=== PATIENT | female | born 1965 | race Caucasian/White ===

== ENCOUNTER 2016-08-05 10:25 | Emergency (ER) | payer OTHER ==
[2016-08-05 10:39] VITALS: BP 105/52; PULSE 60; TEMP 98.1; BMI 34.3
[2016-08-05] MEDS ORDERED: DEXAMETHASONE 4 MG TABLET (FP) PO ONE (10:40)
[2016-08-05] MEDS ORDERED: DEXAMETHASONE SOD PHOSPHATE 10 MG/1 ML VIAL ONE (10:40)
--- NOTE | 2016-08-05 10:40 | PDOC ---
History of Present Illness - General Chief Complaint: Rash Stated Complaint: ITCHING, RASH Time Seen by Provider: 08/05/16 10:31 History Source: Patient, Spouse Exam Limitations: No Limitations - History of Present Illness Initial Comments: 08/05/16 10:38 The patient is a 51-year-old female, with no significant past medical history, who presents to the emergency department with an itchy rash on her trunk, that began yesterday. She has been taking clindamycin for the past 7 days, following the extraction of a wisdom tooth. She was taking a 7 day course of the medication. She denies lip, tongue, throat swelling. She denies dyspnea, wheezing, cough. She denies abdominal pain. She denies dizziness, lightheadedness. She denies fever. She has never taken clindamycin in the past. Past History - Past Medical History Allergies/Adverse Reactions: Allergies Allergy/AdvReac Type Severity Reaction Status Date / Time amoxicillin Allergy Verified 10/27/15 19:19 amoxicillin trihydrate Allergy Verified 08/05/16 10:28 [From Augmentin] potassium clavulanate Allergy Verified 08/05/16 10:28 [From Augmentin] Home Medications: Ambulatory Orders Famotidine [Pepcid] 20 mg PO BID #10 tablet 08/05/16 Loratadine [Claritin -] 10 mg PO DAILY #5 tablet 08/05/16 Omeprazole 20 mg PO DAILY 08/05/16 Ranitidine [Zantac -] 150 mg PO DAILY 08/05/16 Asthma: Yes Cardiac Disorders: Yes (ARRYTHMIA, HEART MURMUR) GI Disorders: Yes (ACID REFLUX) Suicide Attempt (Hx): No - Psycho/Social/Smoking Cessation Hx Anxiety: No Suicidal Ideation: No Smoking Status: No Smoking History: Never smoked Have you smoked in the past 12 months: No Number of Cigarettes Smoked Daily: 0 Information on smoking cessation initiated: No Hx Alcohol Use: No Drug/Substance Use Hx: No Substance Use Type: None Review of Systems - Review of Systems Comments:: 08/05/16 10:38 CONSTITUTIONAL: Absent: fever, chills, fatigue EYES: Absent: visual changes ENT: Absent: ear pain, sore throat CARDIOVASCULAR: Absent: chest pain, palpitations, loss of consciousness RESPIRATORY: Absent: cough, SOB GI: Absent: abdominal pain, nausea, vomiting, constipation, diarrhea GENITOURINARY: Absent: dysuria, frequency, hematuria MUSKULOSKELETAL: Absent: back pain, arthralgia, myalgia SKIN: Present: See history of present illness NEURO: Absent: headache, dizziness *Physical Exam - Vital Signs Last Vital Signs Temp Pulse Resp BP Pulse Ox 98.1 F 60 18 105/52 96 08/05/16 10:25 08/05/16 10:25 08/05/16 10:25 08/05/16 10:25 08/05/16 10:25 - Physical Exam Comments: 08/05/16 10:39 GENERAL: Well-appearing, well-nourished. No apparent distress. HEENT: Normocephalic, atraumatic. PERRL, EOM intact. CARDIOVASCULAR: Normal S1, S2. Regular rate and rhythm. PULMONARY: Clear to auscultation bilaterally. ABDOMEN: Soft, non-distended, non-tender. EXTREMITIES: Normal ROM in all four extremities. No gross deformities. SKIN: There is an erythematous, maculopapular rash on her trunk. There are no vesicles. Warm, dry. NEUROLOGICAL: No focal neurological deficits. Medical Decision Making - Medical Decision Making 08/05/16 10:39 The patient is well-appearing and in no acute distress There is no evidence of anaphylaxis Will administer a single dose of Decadron here Will discharge on oral Pepcid, oral Claritin, and when necessary oral Benadryl Clinical impression: Drug rash I discussed the physical exam findings, ancillary test results and final diagnoses with the patient. I answered all of the patient's questions. The patient was satisfied with the care received and felt comfortable with the discharge plan and treatment plan. The patient will call their primary care physician within 24 hours to arrange follow-up and will return to the Emergency Department with any new, persistent or worsening symptoms. *DC/Admit/Observation/Transfer Diagnosis at time of Disposition: Allergic reaction to drug, Urticaria - Discharge Dispostion Disposition: HOME Condition at time of disposition: Stable - Prescriptions Prescriptions: Loratadine [Claritin -] 10 mg PO DAILY #5 tablet Famotidine [Pepcid] 20 mg PO BID #10 tablet - Referrals Referrals: Summer Espinoza MD [Primary Care Provider] - - Patient Instructions Printed Discharge Instructions: DI for Adverse Drug Reaction -- Allergic Additional Instructions: You are ALLERGIC to clindamycin. You should never take this medication again, or any related medications. Return to the emergency department immediately with ANY new, persistent or worsening symptoms. You MUST call and follow up with your doctor tomorrow. Please make sure your doctor reviews the results of your emergency department evaluation. - Post Discharge Activity Work/School Note: Back to Work
[2016-08-05] MEDS ORDERED: DEXAMETHASONE 4 MG TABLET (FP) ONE (10:42)
== END 2016-08-05 11:00 | disposition home or self-care (01) ==
LOC: FER 10:25
DX: L50.9 Urticaria, unspecified (principal); T50.905A Adverse effect of unspecified drugs, medicaments and biological substances, initial encounter; Y92.9 Unspecified place or not applicable; J45.909 Unspecified asthma, uncomplicated; K21.9 Gastro-esophageal reflux disease without esophagitis; R01.1 Cardiac murmur, unspecified
CPT/HCPCS: 99283-25

== ENCOUNTER 2016-09-21 12:20 | Emergency (ER) | payer OTHER ==
[2016-09-21 12:43] VITALS: BP 122/45; PULSE 81; TEMP 98.9; BMI 34.3
--- NOTE | 2016-09-21 12:46 | PDOC ---
History of Present Illness - General Chief Complaint: Cold Symptoms Stated Complaint: COUGH, BODY ACHES, SORE THROAT Time Seen by Provider: 09/21/16 12:26 History Source: Patient Exam Limitations: No Limitations - History of Present Illness Initial Comments: 09/21/16 12:46 This is a 51-year-old female with a prior history of mild intermittent asthma ( no prior intubations, last asthma exacerbation approximately one year ago, last use of prednisone approximately one year ago) who presents to the emergency department with a complaint of cough and shortness of breath. She denies fevers or chills. She has chest pain when she coughs. Cough is nonproductive. No recent travel. No ill contacts. On account of her coughing, patient has had chest discomfort, but this is present only with coughing. She is unable to delineate to me known triggers She does state that when she gets symptoms like this, they tend to last for several months she thinks she may have seen a table runner in the past PMH: asthma PSH: denies meds: denies ALL: Augmentin, clindamycin social: denies tobacco us 09/21/16 12:48 09/21/16 12:57 09/21/16 13:07 GENERAL/CONSTITUTIONAL: No: fever, chills, weakness, loss of appetite. HEAD, EYES, EARS, NOSE AND THROAT: Yes: sore throat No: change in vision, ear pain, discharge CARDIOVASCULAR: Yes: chest pain with coughing No: lightheadedness, palpitations , syncope RESPIRATORY: Yes: cough, shortness of breath, wheezing GASTROINTESTINAL: No: nausea, vomiting, diarrhea, abdominal pain MUSCULOSKELETAL: No: back pain, neck pain, joint pain, muscle swelling or pain SKIN: No: lesions, pallor, rash or easy bruising. NEUROLOGIC: No: headache, weakness GENERAL: The patient is in no acute distress, coughing. EYES: PERRLA, EOMI, sclera anicteric, conjunctiva clear. ENT: Pharynx mildly erythematous, no tonsillar enlargement, no exudates. Moist mucous membranes. NECK: Normal range of motion, supple without lymphadenopathy, JVD, or masses. LUNGS: Breath sounds equal, clear to auscultation bilaterally. HEART:Regular rate and rhythm, normal S1 and S2 without murmur, rub or gallop. ABDOMEN: Soft, nontender EXTREMITIES: Normal range of motion, no edema. No clubbing or cyanosis. No erythema, or tenderness. NEUROLOGICAL: Cranial nerves II through XII grossly intact. Normal speech. No focal neurological deficits. MUSCULOSKELETAL: Back non-tender to palpation, no CVA tenderness SKIN: Warm, Dry, normal turgor, no rashes or lesions noted. 09/23/16 10:09 Past History - Past Medical History Allergies/Adverse Reactions: Allergies Allergy/AdvReac Type Severity Reaction Status Date / Time clindamycin Allergy Unknown Verified 09/21/16 12:47 amoxicillin Allergy Verified 09/21/16 12:27 amoxicillin trihydrate Allergy Verified 09/21/16 12:27 [From Augmentin] potassium clavulanate Allergy Verified 09/21/16 12:27 [From Augmentin] Home Medications: Ambulatory Orders Albuterol 0.083% Nebulizer Charla [Ventolin 0.083% Nebulizer Soln -] 1 neb NEB Q6H PRN #30 vial 09/21/16 Azithromycin [Zithromax 250mg Tablets -] 250 mg PO UTDICT #6 tab 09/21/16 Brompheniramine/Pseudoephed/Dm [2Gct-[id number] Liquid] 473 ml PO Q6H PRN #1 liquid 09/21/16 Prednisone [Deltasone -] 60 mg PO DAILY #12 tablet 09/21/16 Asthma: Yes Cardiac Disorders: Yes (ARRYTHMIA, HEART MURMUR) GI Disorders: Yes (ACID REFLUX) Suicide Attempt (Hx): No - Psycho/Social/Smoking Cessation Hx Anxiety: No Suicidal Ideation: No Smoking Status: No Smoking History: Never smoked Have you smoked in the past 12 months: No Number of Cigarettes Smoked Daily: 0 Hx Alcohol Use: No Drug/Substance Use Hx: No Substance Use Type: None *Physical Exam - Vital Signs Last Vital Signs Temp Pulse Resp BP Pulse Ox 98.9 F 81 16 122/45 96 09/21/16 12:24 09/21/16 12:24 09/21/16 12:24 09/21/16 12:24 09/21/16 12:24 Medical Decision Making - Medical Decision Making 09/21/16 13:12 will do : rapid strep CXr will give prednisone will give neb will plan to discharge on prednisone burst, nebs, and antitussive Follow up with Dr Espinoza 09/21/16 13:44 X-ray demonstrates no consolidation,? Increased markings right middle lobe. Will discharge on anti-tussive, prednisone, albuterol. Patient asked to follow-up with her primary care physician. Will also asked patient to follow up with table runner (if recommended by PMD). Any other concerns or complaints. Please monitoring her temperature for fever *DC/Admit/Observation/Transfer Diagnosis at time of Disposition: Bronchitis - Discharge Dispostion Disposition: HOME Condition at time of disposition: Good Admit: No - Prescriptions Prescriptions: Brompheniramine/Pseudoephed/Dm [2Ibb-[id number] Liquid] 473 ml PO Q6H PRN #1 liquid PRN Reason: Cough Prednisone [Deltasone -] 60 mg PO DAILY #12 tablet Albuterol 0.083% Nebulizer Charla [Ventolin 0.083% Nebulizer Soln -] 1 neb NEB Q6H PRN #30 vial PRN Reason: Cough Azithromycin [Zithromax 250mg Tablets -] 250 mg PO UTDICT #6 tab - Referrals Referrals: Leo Hoffman [Primary Care Provider] - - Patient Instructions Printed Discharge Instructions: DI for Acute Bronchitis Additional Instructions: Reena Thank you for coming in to the ER today Please take medications as prescribed please follow up with your primary care physician at the next available appointment Please check your self for fevers, return to the ER for this Please return if you are short of breath, difficulty breathing, have any other concerns or complaint
[2016-09-21] MEDS ORDERED: ALBUTEROL SO4 0.083% IH SOL 2.5 MG/3 ML VIAL.NEB. NEB ONE ×2 (12:48→13:01)
[2016-09-21] MEDS ORDERED: predniSONE 20 MG TABLET (UD) PO ONE (12:57)
[2016-09-21] MEDS ORDERED: predniSONE 20 MG TABLET (UD) ONE (13:01)
== END 2016-09-21 14:11 | disposition home or self-care (01) ==
LOC: FER 12:20 → SUPCPDRO 12:20 → FER 14:11
PROC: 3E0F7GC Introduction of Other Therapeutic Substance into Respiratory Tract, Via Natural or Artificial Opening (ICD-10-PCS; principal; 2016-09-21)
DX: J40 Bronchitis, not specified as acute or chronic (principal); K21.9 Gastro-esophageal reflux disease without esophagitis; R01.1 Cardiac murmur, unspecified; I49.9 Cardiac arrhythmia, unspecified
CPT/HCPCS: 71020-TC; 87070; 87430; 99282-25

== ENCOUNTER 2017-06-08 09:35 | Emergency (ER) | payer OTHER ==
[2017-06-08 09:44] VITALS: BP 106/55; PULSE 84; TEMP 97.9; BMI 33.9
[2017-06-08] MEDS ORDERED: ACETAMINOPHEN 325 MG TABLET (FP) PO ONE (10:09)
--- NOTE | 2017-06-08 10:10 | PDOC ---
History of Present Illness - General Chief Complaint: Injury Stated Complaint: HEAD PAIN, DIZZY S/P SLIP AND FALL ON ICE Time Seen by Provider: 06/08/17 09:51 - History of Present Illness Initial Comments: 06/08/17 10:43 Chief complaint: Headache and dizziness History of present illness: Patient slipped on ice this morning, fell backward and struck her occiput. No loss of consciousness. This happened approximately 3 hours ago. She has had mild persistent headache and "lightheadedness" Review of systems: No visual or focal neurologic symptoms. No unsteadiness of gait. No other injuries including pain or injuries to the neck, chest, abdomen, pelvis, spine, or extremities. As noted above, there was no loss of consciousness, lightheadedness, dizziness, vertigo, or palpitations prior to the fall. Past medical history, social history, and family history were reviewed and noncontributory Physical exam: Alert and oriented, no acute distress, cooperative Afebrile, vital signs normal Head: No point tenderness, hematoma, contusion, depression, abrasion, or laceration noted. PERRLA, fundi benign with sharp disc margins and good central venous pulsations. ENT clear Neck without tenderness or deformity, full range of motion without pain Chest clear. No chest wall deformity or point tenderness. CV S1 and S2 normal without murmur rub or gallop pulses full and symmetric no JVD or edema Abdomen benign No spine or pelvic tenderness or deformity Neurological C2 to 12 intact. Strength full and symmetric. No focal sensory or motor deficits. Gait stable and unimpaired Extremities no CCE. No visible or palpable trauma. Full range of motion of the hips and shoulders, and other joints as well Impression: Head injury, possible minor concussion, rule out bleed Plan: CT and further management depending on results. Analgesics. Past History - Past Medical History Allergies/Adverse Reactions: Allergies Allergy/AdvReac Type Severity Reaction Status Date / Time clindamycin Allergy Unknown Verified 06/08/17 09:38 amoxicillin Allergy Verified 06/08/17 09:38 amoxicillin trihydrate Allergy Verified 06/08/17 09:38 [From Augmentin] potassium clavulanate Allergy Verified 06/08/17 09:38 [From Augmentin] Home Medications: Ambulatory Orders Albuterol 0.083% Nebulizer Charla [Ventolin 0.083% Nebulizer Soln -] 1 neb NEB Q6H PRN #30 vial 09/21/16 Asthma: Yes Cardiac Disorders: Yes (ARRYTHMIA, HEART MURMUR) COPD: No GI Disorders: Yes (ACID REFLUX) - Suicide/Smoking/Psychosocial Hx Smoking Status: No Smoking History: Never smoked Have you smoked in the past 12 months: No Number of Cigarettes Smoked Daily: 0 Information on smoking cessation initiated: No Hx Alcohol Use: No Drug/Substance Use Hx: No Substance Use Type: None *Physical Exam - Vital Signs Last Vital Signs Temp Pulse Resp BP Pulse Ox 97.9 F 84 18 106/55 100 06/08/17 09:35 06/08/17 09:35 06/08/17 09:35 06/08/17 09:35 06/08/17 09:35 Medical Decision Making - Medical Decision Making 06/08/17 10:53 CT negative Symptomatic treatment and follow-up as needed. Patient fully ambulatory and in no significant pain or other distress upon discharge to follow-up as recommended *DC/Admit/Observation/Transfer Diagnosis at time of Disposition: Contusion of scalp Qualifiers: Encounter type: initial encounter Qualified Code(s): S00.03XA - Contusion of scalp, initial encounter - Discharge Dispostion Disposition: HOME Condition at time of disposition: Stable Admit: No - Referrals Referrals: Summer Espinoza MD [Primary Care Provider] - 24 hours - Patient Instructions Printed Discharge Instructions: DI for Closed Head Injury - Post Discharge Activity Forms/Work/School Notes: Back to Work
[2017-06-08] MEDS ORDERED: ACETAMINOPHEN 325 MG TABLET (FP) ONE (10:19)
== END 2017-06-08 11:05 | disposition home or self-care (01) ==
LOC: FER 09:35
DX: S00.03XA Contusion of scalp, initial encounter (principal); W00.0XXA Fall on same level due to ice and snow, initial encounter; Y93.89 Activity, other specified; Y92.410 Unspecified street and highway as the place of occurrence of the external cause
CPT/HCPCS: 70450-TC; 99282-25

== ENCOUNTER 2018-04-23 09:34 | Emergency (ER) | payer OTHER ==
[2018-04-23 09:39] VITALS: TEMP 98; BMI 34.1
[2018-04-23 09:40] VITALS: BP 104/63; PULSE 63
--- NOTE | 2018-04-23 09:40 | PDOC ---
History of Present Illness - General Chief Complaint: Pain, Acute Stated Complaint: NECK PAIN History Source: Patient - History of Present Illness Initial Comments: 04/23/18 10:14 The patient is a 53 year old female with a PMH of fibromyalgia and asthma (no hospitalizations, no intubations, cannot recall when she last used her inhaler) presents c/o 1 week h/o L sided arm pain, 1 day h/o sinus/nasal pain. Sinus pain is frontal, pressure-like and patient notes some runny nose. No fevers/ chills, sore throat, cough. 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 Arm pain started yesterday evening and is "achy" constant, 10/10 and without any numbness/tingling. No associated chest pain. H/o similar pain in her LA arm w/ associated numbness/tingling earlier this year at which time her her PMD (Dr. Espinoza) referred her to rheumatology (Dr. Riggs). States she was prescribed a medication (cannot recall the name), however she did not feel it was working and so she stopped taking it. Patient thinks she had an MRI but is uncertain. Patient denies chest pain, shortness of breath, abdominal pain, nausea/vomiting , diarrhea/constipation, dysuria/hematuria as well as visual deficits, AMS. Allergy: Amoxicillin, Clindamycin PMD: Dr. Espinoza As per EMR, patient last evaluated in our ED in June 2017 for a fall after slipping on the ice. Head CT negative. Previous ED for visits for headache, abdominal pain associated w/menstruation, L arm numbness/tingling. H/o GI bleed. Past History - Past Medical History Allergies/Adverse Reactions: Allergies Allergy/AdvReac Type Severity Reaction Status Date / Time clindamycin Allergy Unknown Verified 04/23/18 09:35 amoxicillin Allergy Verified 04/23/18 09:35 amoxicillin trihydrate Allergy Verified 04/23/18 09:35 [From Augmentin] potassium clavulanate Allergy Verified 04/23/18 09:35 [From Augmentin] Home Medications: Ambulatory Orders Albuterol 0.083% Nebulizer Charla [Ventolin 0.083% Nebulizer Soln -] 1 neb NEB Q6H PRN #30 vial 09/21/16 Asthma: Yes Cardiac Disorders: Yes (ARRYTHMIA, HEART MURMUR) COPD: No GI Disorders: Yes (ACID REFLUX) - Suicide/Smoking/Psychosocial Hx Smoking Status: No Smoking History: Never smoked Have you smoked in the past 12 months: No Number of Cigarettes Smoked Daily: 0 Hx Alcohol Use: No Drug/Substance Use Hx: No Substance Use Type: None Review of Systems - Review of Systems Constitutional: No: Chills, Fever HEENTM: No: Blurred Vision, Double Vision Respiratory: No: Cough, Shortness of Breath, Wheezing Cardiac (ROS): No: Chest Pain, Lightheadedness, Palpitations, Syncope ABD/GI: Yes: Poor Fluid Intake. No: Constipated, Diarrhea, Nausea, Vomiting : No: Burning, Dysuria Neurological: No: Headache, Seizure, Weakness Psychiatric: No: Anxiety, Depression *Physical Exam - Vital Signs Last Vital Signs Temp Pulse Resp BP Pulse Ox 98 F 0/0 L 04/23/18 09:35 04/23/18 09:35 - Physical Exam General Appearance: Yes: Nourished, Obese HEENT: positive: Normal Voice, Sinus Tenderness, Hearing Grossly Normal Neck: positive: Trachea midline, Supple Respiratory/Chest: positive: Lungs Clear, Normal Breath Sounds. negative: Crackles, Rales, Stridor, Wheezing Cardiovascular: positive: Regular Rhythm, Regular Rate, S1, S2. negative: Edema , Murmur Vascular Pulses: Dorsalis-Pedis (R): 2+, Doralis-Pedis (L): 2+ Gastrointestinal/Abdominal: positive: Normal Bowel Sounds, Soft. negative: Distended, Guarding, Rebound, Tenderness Musculoskeletal: negative: CVA Tenderness (R), CVA Tenderness (L) Extremity: positive: Normal Capillary Refill, Normal Inspection, Other (2+ radial pulses B/L, full ROM of extremity, sensation, proproception intact) Integumentary: positive: Normal Color, Dry, Warm Neurologic: positive: Fully Oriented, Alert Moderate Sedation - Procedure Monitoring Vital Signs: Procedure Monitoring Vital Signs Temperature 98 F 04/23/18 09:35 Pulse Rate Respiratory Rate Blood Pressure 0/0 L 04/23/18 09:35 O2 Sat by Pulse Oximetry (%) ED Treatment Course - LABORATORY CBC & Chemistry Diagram: 04/23/18 10:15 04/23/18 10:15 Medical Decision Making - Medical Decision Making 04/23/18 11:14 53 year old female with unspecific L arm pain as well as sinus pain. VS unremarkable. B/L maxillary sinus tenderness. Frontal diagnosis: sinusitis, viral URI as well as radiculopathy, MSK pain (including possible fibromyalgia flare), less likely TN, low clinical suspicion for CVA. Will obtain EKG, Troponin x1, basic labs, CMP. Tylenol for pain as patient has h/o GI bleed. Reassess. 04/23/18 11:40 Troponin (-) x1, ECG non-ischemic as documented in ECG section of EMR CMP unremarkable Patient reassessed @ bedside, symptomatically improved. Resting comfortably. CBC pending. 04/23/18 12:43 CBS shows no leukocytosis. Hb stable As patient is symptomatically improved, will discharge home with PMD follow-up Clinical Impression: MSK pain +/- sinusitis. *DC/Admit/Observation/Transfer Diagnosis at time of Disposition: Musculoskeletal arm pain, Tenderness over maxillary sinus - Discharge Dispostion Disposition: HOME Condition at time of disposition: Good Decision to Admit order: No - Referrals Referrals: Summer Espinoza MD [Primary Care Provider] - - Patient Instructions Printed Discharge Instructions: DI for Sinusitis Additional Instructions: You were evaluated today for your arm and sinus/nasal pain. All of your labs and an EKG showed no concerning findings. At this time, you are safe for discharge home. You can use Afrin nasal spray (up to three day) alternating with a nasal spray. You may want to try a neti pot for symptomatic relief. You can take Tylenol (up to 4000 mg daily) for your pain. Please follow-up with Dr. Espinoza in the next 2-3 days. Return to the Emergency Department for any new/worsening/concerning symptoms including worsening of your pain, chest pain, shortness of breath. - Post Discharge Activity Forms/Work/School Notes: Back to Work
[2018-04-23] MEDS ORDERED: SODIUM CHLORIDE 0.9% 500 ML INFUS.BAG IV ONE (10:08)
[2018-04-23] MEDS ORDERED: ACETAMINOPHEN 1000 MG/100 ML VIAL (NON FORMULARY) IVPB ONE (10:12)
[2018-04-23] MEDS ORDERED: diazePAM CARPU-JECT 10 MG/2 ML DISP.SYRIN IVPUSH ONE (10:12)
[2018-04-23] MEDS ORDERED: ACETAMINOPHEN INJECTION 100 ML IVPB ONE (10:21)
[2018-04-23] MEDS ORDERED: diazePAM 5 MG TABLET ONE (10:21)
[2018-04-23] MEDS ORDERED: diazePAM 5 MG TABLET PO ONE (10:22)
[2018-04-23 10:28] LABS: BASO % 0.6 % (0-2.0); EOS % 2.4 % (0-4.5); HEMATOCRIT 37.3 % (32.4-45.2); HEMOGLOBIN 12.1 GM/dl (10.7-15.3); LYMPH % 35.4 % (8-40); MCH 24.2 pg (25.7-33.7); MCHC 32.4 g/dl (32.0-36.0); MEAN CELL VOLUME 74.5 fl (80-96); MEAN PLT VOLUME 8.3 fl (7.5-11.1); MONO % 6.4 % (3.8-10.2); NEUT % 55.2 % (42.8-82.8); PLATELET COUNT 249 K/MM3 (134-434); RDW 13.2 % (11.6-15.6)
[2018-04-23 10:38] LABS: ALBUMIN 3.8 g/dl (3.5-5.0); ALK PHOS 88 U/L (32-92); ANION GAP 8 MMOL/L (8-16); BILIRUBIN,TOTAL 0.7 mg/dl (0.2-1.0); BLOOD UREA NITROGEN 10 mg/dl (7-18); CALCIUM 8.4 mg/dl (8.4-10.2); CHLORIDE 103 mmol/L (98-107); CO2 25 mmol/L (22-28); CREATININE 0.7 mg/dl (0.6-1.3); GLUCOSE,RANDOM 110 mg/dl (74-106); POTASSIUM 3.7 mmol/L (3.5-5.1); SGOT/AST 32 U/L (10-42); SGPT/ALT 43 U/L (10-40); SODIUM 136 mmol/L (136-145); TOT PROT 6.6 g/dl (6.4-8.3)
--- NOTE | 2018-04-24 10:22 | EKG ---
Test Reason : Blood Pressure : / mmHG Vent. Rate : 057 BPM Atrial Rate : 057 BPM P-R Int : 226 ms QRS Dur : 070 ms QT Int : 454 ms P-R-T Axes : 051 002 006 degrees QTc Int : 441 ms SINUS BRADYCARDIA WITH 1ST DEGREE A-V BLOCK OTHERWISE NORMAL ECG WHEN COMPARED WITH ECG OF 22-MAR-2004 01:46, NO SIGNIFICANT CHANGE WAS FOUND Confirmed by INGRIS REILLY, BOZENA ([id number]) on 04/24/2018 10:22:04 AM Referred By: TACHO HARMON Confirmed By:BOZENA AMADO MD
== END 2018-04-23 11:31 | disposition home or self-care (01) ==
LOC: FER 09:34
PROC: 3E0337Z Introduction of Electrolytic and Water Balance Substance into Peripheral Vein, Percutaneous Approach (ICD-10-PCS; principal; 2018-04-23)
PROC: 3E033NZ Introduction of Analgesics, Hypnotics, Sedatives into Peripheral Vein, Percutaneous Approach (ICD-10-PCS; 2018-04-23)
DX: M79.602 Pain in left arm (principal); G50.1 Atypical facial pain; M79.7 Fibromyalgia; R01.1 Cardiac murmur, unspecified; J45.909 Unspecified asthma, uncomplicated; K21.9 Gastro-esophageal reflux disease without esophagitis
CPT/HCPCS: 36415; 80053; 84484; 85025; 93005; 99283-25; J0131

== ENCOUNTER 2018-09-18 18:55 | Emergency (ER) | payer OTHER ==
[2018-09-18 19:06] VITALS: BMI 33.5
[2018-09-18] MEDS ORDERED: ASPIRIN 81 MG CHEWABLE TABLETS PO ONE (19:07)
--- NOTE | 2018-09-18 19:07 | PDOC ---
Rapid Medical Evaluation Chief Complaint: Shortness of Breath Time Seen by Provider: 09/18/18 19:06 Medical Evaluation: Allergies Allergy/AdvReac Type Severity Reaction Status Date / Time clindamycin Allergy Unknown Verified 09/18/18 19:03 amoxicillin Allergy Verified 09/18/18 19:03 amoxicillin trihydrate Allergy Verified 09/18/18 19:03 [From Augmentin] potassium clavulanate Allergy Verified 09/18/18 19:03 [From Augmentin] Vital Signs Temp Pulse Resp BP Pulse Ox 98.5 F 62 16 115/62 100 09/18/18 19:03 09/18/18 19:03 09/18/18 19:03 09/18/18 19:03 09/18/18 19:03 09/18/18 19:06 HPI: SOB x 3 days PE: No distress ORDERS: Cardiac work up Discharge Disposition - Diagnosis SOB (shortness of breath) - Referrals - Patient Instructions - Post Discharge Activity
--- NOTE | 2018-09-18 21:00 | PDOC ---
History of Present Illness - General Chief Complaint: Shortness of Breath Stated Complaint: SOB Time Seen by Provider: 09/18/18 19:06 History Source: Patient Exam Limitations: No Limitations - History of Present Illness Initial Comments: 09/18/18 21:18 53 year old female with PMH asthma, arrhythmia presented to ED for intermittent shortness of breath x4 days. Pt admitted to intermittent chest discomfort starting in her head and radiating down to her left chest, she cannot determine how long it lasts, no aggravating or alleviating factors. Pt denied wheezing, coughing, fever, chills, nausea, vomiting, diarrhea, abdominal pain, weakness, numbness, tingling. Past History - Past Medical History Allergies/Adverse Reactions: Allergies Allergy/AdvReac Type Severity Reaction Status Date / Time clindamycin Allergy Unknown Verified 09/18/18 19:03 amoxicillin Allergy Verified 09/18/18 19:03 amoxicillin trihydrate Allergy Verified 09/18/18 19:03 [From Augmentin] potassium clavulanate Allergy Verified 09/18/18 19:03 [From Augmentin] Home Medications: Ambulatory Orders Albuterol 0.083% Nebulizer Charla [Ventolin 0.083% Nebulizer Soln -] 1 neb NEB Q6H PRN #30 vial 09/21/16 Asthma: Yes Cardiac Disorders: Yes (ARRYTHMIA, HEART MURMUR) COPD: No GI Disorders: Yes (ACID REFLUX) - Suicide/Smoking/Psychosocial Hx Smoking Status: No Smoking History: Never smoked Have you smoked in the past 12 months: No Number of Cigarettes Smoked Daily: 0 Information on smoking cessation initiated: No Hx Alcohol Use: No Drug/Substance Use Hx: No Substance Use Type: None Review of Systems - Review of Systems Able to Perform ROS?: Yes Constitutional: No: Chills, Fever HEENTM: No: Blurred Vision, Ear Pain, Throat Pain Respiratory: Yes: Shortness of Breath. No: Cough, Wheezing, Productive cough Cardiac (ROS): Yes: Chest Pain. No: Palpitations ABD/GI: No: Diarrhea, Nausea, Vomiting : No: Burning, Dysuria Musculoskeletal: No: Joint Pain, Muscle Pain, Muscle Weakness Neurological: Yes: Headache. No: Seizure, Tingling, Weakness *Physical Exam - Vital Signs Last Vital Signs Temp Pulse Resp BP Pulse Ox 98.5 F 62 16 115/62 100 0515/19 19:03 09/18/18 19:03 09/18/18 19:03 09/18/18 19:03 09/18/18 19:03 - Physical Exam General Appearance: Yes: Nourished, Appropriately Dressed. No: Apparent Distress HEENT: positive: EOMI, ADELINA Neck: positive: Trachea midline, Supple. negative: Tender, Tender midline Respiratory/Chest: positive: Lungs Clear, Normal Breath Sounds Cardiovascular: positive: Regular Rhythm, Regular Rate Gastrointestinal/Abdominal: positive: Normal Bowel Sounds, Flat, Soft. 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 II-XII NML intact, Fully Oriented, Alert, Normal Mood/ Affect, Normal Response, Motor Strength 5/5. negative: Numbness, Sensory Deficit ED Treatment Course - LABORATORY CBC & Chemistry Diagram: 09/18/18 21:20 09/18/18 21:20 Medical Decision Making - Medical Decision Making 09/18/18 21:26 53 year old female with above PMH presented to ED for intermittent SOB associated with head pain that radiates down to her chest. Initial Vital Signs Temp Pulse Resp BP Pulse Ox 98.5 F 62 16 115/62 100 09/18/18 19:03 09/18/18 19:03 09/18/18 19:03 09/18/18 19:03 09/18/18 19:03 Afebrile. No tachycardia. No tachypnea. No hypotension. No hypoxia on room air. Labs ordered: CBC, CMP, mag, troponin Imaging ordered: CXR Medications ordered: ASA 162, Tylenol 975 mg PO EKG performed at 1851: rate 68, regular rhythm, normal axis, 1st degree AV block , no acute ST changes. Similar to prior EKG performed 04/23/18. 09/18/18 22:20 CBC WBC 5.3 K/mm3 (4.0-10.0) 09/18/18 21:20 RBC 5.20 M/mm3 (3.60-5.2) 09/18/18 21:20 Hgb 12.3 GM/dL (10.7-15.3) 09/18/18 21:20 Hct 38.1 % (32.4-45.2) 09/18/18 21:20 MCV 73.3 fl (80-96) L 09/18/18 21:20 MCH 23.7 pg (25.7-33.7) L 09/18/18 21:20 MCHC 32.3 g/dl (32.0-36.0) 09/18/18 21:20 RDW 15.0 % (11.6-15.6) 09/18/18 21:20 Plt Count 223 K/MM3 (134-434) 09/18/18 21:20 MPV 8.3 fl (7.5-11.1) 09/18/18 21:20 Absolute Neuts (auto) 2.9 K/mm3 (1.5-8.0) 09/18/18 21:20 Neutrophils % 54.1 % (42.8-82.8) 09/18/18 21:20 Lymphocytes % 36.1 % (8-40) 09/18/18 21:20 Monocytes % 7.1 % (3.8-10.2) 09/18/18 21:20 Eosinophils % 2.0 % (0-4.5) 09/18/18 21:20 Basophils % 0.7 % (0-2.0) 09/18/18 21:20 Nucleated RBC % 0 % (0-0) 09/18/18 21:20 No leukocytosis. No anemia. CMP Sodium 141 mmol/L (136-145) 09/18/18 21:20 Potassium 4.3 mmol/L (3.5-5.1) 09/18/18 21:20 Chloride 106 mmol/L (98-107) 09/18/18 21:20 Carbon Dioxide 28 mmol/L (21-32) 09/18/18 21:20 Anion Gap 7 MMOL/L (8-16) L 09/18/18 21:20 BUN 12 mg/dL (7-18) 09/18/18 21:20 Creatinine 0.9 mg/dL (0.55-1.3) 09/18/18 21:20 Est GFR (CKD-EPI)AfAm 85.20 09/18/18 21:20 Est GFR (CKD-EPI)NonAf 73.51 09/18/18 21:20 Random Glucose 120 mg/dL (74-106) H 09/18/18 21:20 Calcium 8.7 mg/dL (8.5-10.1) 09/18/18 21:20 Magnesium 2.6 mg/dL (1.8-2.4) H 09/18/18 21:20 Total Bilirubin 0.6 mg/dL (0.2-1) 09/18/18 21:20 AST 34 U/L (15-37) 09/18/18 21:20 ALT 75 U/L (13-61) H 09/18/18 21:20 Alkaline Phosphatase 91 U/L (45-117) 09/18/18 21:20 Creatine Kinase 129 U/L (26-192) 09/18/18 21:20 Troponin I < 0.02 ng/ml (0.00-0.05) 09/18/18 21:20 Total Protein 6.6 g/dl (6.4-8.2) 09/18/18 21:20 Albumin 3.7 g/dl (3.4-5.0) 09/18/18 21:20 No clinically significant electrolyte abnormalities. No MARBELLA. Troponin within normal limits. CXR my read: sharp costophrenic angles. no infiltrate. no large pneumothorax. no cardiomegaly. -Pending official read 09/18/18 22:32 Results explained to patient. Pt informed of need for repeat troponin. Pt agrees with plan for care. 09/18/18 23:54 Pt signed out to Dr. Lennon. *DC/Admit/Observation/Transfer Diagnosis at time of Disposition: SOB (shortness of breath) - Discharge Dispostion Disposition: HOME Condition at time of disposition: Stable - Referrals Referrals: Summer Espinoza MD [Primary Care Provider] - - Patient Instructions Printed Discharge Instructions: DI for Shortness of Breath Additional Instructions: Your lab work was normal. Your EKG was normal. Follow up with your primary care doctor within 2-3 days. Return to the Emergency Department for chest pain, shortness of breath, palpitations, lightheadedness like you may pass out, or any other new, worsening or concerning symptoms. - Post Discharge Activity Forms/Work/School Notes: Back to Work
[2018-09-18] MEDS ORDERED: ASPIRIN 81 MG CHEWABLE TABLETS ONE (21:09)
[2018-09-18] MEDS ORDERED: ACETAMINOPHEN 325 MG TABLET (FP) PO ONE (21:21)
[2018-09-18 21:27] LABS: BASO % 0.7 % (0-2.0); HEMATOCRIT 38.1 % (32.4-45.2); HEMOGLOBIN 12.3 GM/dL (10.7-15.3); LYMPH % 36.1 % (8-40); MCH 23.7 pg (25.7-33.7); MCHC 32.3 g/dl (32.0-36.0); MEAN CELL VOLUME 73.3 fl (80-96); MEAN PLT VOLUME 8.3 fl (7.5-11.1); MONO % 7.1 % (3.8-10.2); NEUT % 54.1 % (42.8-82.8); PLATELET COUNT 223 K/MM3 (134-434); WHITE BLOOD COUNT 5.3 K/mm3 (4.0-10.0)
[2018-09-18] MEDS ORDERED: ACETAMINOPHEN 325 MG TABLET (FP) ONE (21:29)
--- NOTE | 2018-09-18 21:53 | PDOC ---
Documentation entered by Prabhjot Segovia SCRIBE, acting as scribe for Aldair Kerr MD. Aldair Kerr MD: This documentation has been prepared by the Luca nava Xhesika, SCRIBE, under my direction and personally reviewed by me in its entirety. I confirm that the documentation accurately reflects all work, treatment, procedures, and medical decision making performed by me. Attending Attestation - Resident Resident Name: Ashley Renteria - HPI HPI: 09/18/18 21:53 The patient is a 53 year old female with a significant past medical history of asthma, acid reflux, fibromyalgia, and AV block who presents to our ED with 4 days of intermittent SOB worsening today. The patient states she endorses chest discomfort that starts in her head and radiates to her L chest at the onset of her SOB. The patient denies calf pain, abdominal pain, weakness, numbness or tingling The patient denies fever, chills, nausea, diarrhea or constipation. The patient denies dysuria, frequency, urgency or hematuria. Allergy: clindamycin, amoxicillin, amoxicillin trihydrate, and potassium clavulanate Surgical History: None reported Social History: None reported PCP: Summer Dahl I - Physicial Exam PE: 09/18/18 22:02 Patient is awake and alert, obese, in no distress Normocephalic and atraumatic PERRLA, EOMI CTA RRR Abdomen is soft, nontender, nondistended No lower extremity edema - Medical Decision Making 09/18/18 22:03 53-year-old female with no known CAD risk factors presents with atypical chest pain. EKG reveals no evidence of acute ischemia, for degree AV block is noted. Chest x-ray reveals no evidence of cardiomegaly or pneumothorax. Patient's heart score is noted to be 2. Will obtain 2 sets of cardiac enzymes and if negative patient will be safe for outpatient follow-up. Heart Score/ECG Review - History History: Slightly suspicious - Electrocardiogram EKG: Normal - Age Age: 45-65 - Risk Factors Risk Factors Heart Score: Yes Hx Obesity Based on the list above the patient has:: 1-2 risk factors - Troponin Troponin: </= normal limit - Score Heart Score - Total: 2
[2018-09-18 22:08] LABS: ALBUMIN 3.7 g/dl (3.4-5.0); ALK PHOS 91 U/L (45-117); ANION GAP 7 MMOL/L (8-16); BILIRUBIN,TOTAL 0.6 mg/dL (0.2-1); BLOOD UREA NITROGEN 12 mg/dL (7-18); CALCIUM 8.7 mg/dL (8.5-10.1); CHLORIDE 106 mmol/L (98-107); CO2 28 mmol/L (21-32); CREATININE 0.9 mg/dL (0.55-1.3); GLUCOSE,RANDOM 120 mg/dL (74-106); MAGNESIUM 2.6 mg/dL (1.8-2.4); POTASSIUM 4.3 mmol/L (3.5-5.1); SGOT/AST 34 U/L (15-37); SGPT/ALT 75 U/L (13-61); SODIUM 141 mmol/L (136-145); TOT PROT 6.6 g/dl (6.4-8.2)
[2018-09-18 23:32] VITALS: TEMP 98.1
[2018-09-18] MEDS ORDERED: SUCRALFATE 1 GM/10 ML UNIT DOSE CUPS PO ONE (23:43)
--- NOTE | 2018-09-19 00:14 | PDOC ---
*Physical Exam - Vital Signs Last Vital Signs Temp Pulse Resp BP Pulse Ox 98.1 F 58 L 20 104/56 L 100 09/18/18 23:32 09/18/18 23:32 09/18/18 23:32 09/18/18 23:32 09/18/18 23:32 - Physical Exam Comments: 09/19/18 00:14 Received sign out from Dr. Renteria. ED Treatment Course - LABORATORY CBC & Chemistry Diagram: 09/18/18 21:20 09/18/18 21:20 - ADDITIONAL ORDERS Additional order review: Laboratory Results 09/18/18 09/18/18 23:32 21:20 Sodium 141 Potassium 4.3 Chloride 106 Carbon Dioxide 28 Anion Gap 7 L BUN 12 Creatinine 0.9 Est GFR (CKD-EPI)AfAm 85.20 Est GFR (CKD-EPI)NonAf 73.51 Random Glucose 120 H Calcium 8.7 Magnesium 2.6 H Total Bilirubin 0.6 AST 34 ALT 75 H Alkaline Phosphatase 91 Creatine Kinase 129 Troponin I < 0.02 < 0.02 Total Protein 6.6 Albumin 3.7 09/18/18 21:20 RBC 5.20 MCV 73.3 L MCHC 32.3 RDW 15.0 MPV 8.3 Neutrophils % 54.1 Lymphocytes % 36.1 Monocytes % 7.1 Eosinophils % 2.0 Basophils % 0.7 - Medications Given in the ED: ED Medications Discontinued Medications Generic Name Dose Route Start Last Admin Trade Name Freq PRN Reason Stop Dose Admin Acetaminophen 975 mg 09/18/18 21:21 09/18/18 21:28 Tylenol - PO 09/18/18 21:22 975 mg ONCE ONE Administration Aspirin 162 mg 09/18/18 19:07 09/18/18 21:23 Asa - PO 09/18/18 19:08 162 mg ONCE ONE Administration Sucralfate 1 gm 09/18/18 23:43 09/19/18 00:08 Carafate Oral Suspension - PO 09/18/18 23:44 Not Given ONCE ONE Medical Decision Making - Medical Decision Making The patient's second troponin was negative. The patient is to be discharged with follow up care with her primary medical doctor. I explained to the patient the results of the tests and gave her return precautions. The patient understood and agreed to the precautions. *DC/Admit/Observation/Transfer Diagnosis at time of Disposition: SOB (shortness of breath) - Discharge Dispostion Disposition: HOME Condition at time of disposition: Stable Decision to Admit order: No - Referrals Referrals: Summer Espinoza MD [Primary Care Provider] - - Patient Instructions Printed Discharge Instructions: DI for Shortness of Breath Additional Instructions: Your lab work was normal. Your EKG was normal. Follow up with your primary care doctor within 2-3 days. Return to the Emergency Department for chest pain, shortness of breath, palpitations, lightheadedness like you may pass out, or any other new, worsening or concerning symptoms. - Post Discharge Activity Forms/Work/School Notes: Back to Work
[2018-09-19 00:25] VITALS: BP 104/52; PULSE 61
--- NOTE | 2018-09-19 14:26 | EKG ---
Test Reason : Blood Pressure : / mmHG Vent. Rate : 068 BPM Atrial Rate : 068 BPM P-R Int : 222 ms QRS Dur : 074 ms QT Int : 424 ms P-R-T Axes : 060 013 040 degrees QTc Int : 450 ms SINUS RHYTHM WITH 1ST DEGREE A-V BLOCK OTHERWISE NORMAL ECG WHEN COMPARED WITH ECG OF 23-APR-2018 10:33, NO SIGNIFICANT CHANGE WAS FOUND Confirmed by JOSE REILLY, TACHO ([id number]) on 09/19/2018 2:26:06 PM Referred By: Confirmed By:TACHO GARCIA MD
== END 2018-09-19 00:25 | disposition home or self-care (01) ==
LOC: JER 18:55
DX: R06.02 Shortness of breath (principal); I49.9 Cardiac arrhythmia, unspecified; R01.1 Cardiac murmur, unspecified; J45.909 Unspecified asthma, uncomplicated
CPT/HCPCS: 71046-TC-FY; 80053; 82550; 83735; 84484; 85025; 93005; 93010; 99283-25

== ENCOUNTER 2019-05-09 10:20 | Emergency (ER) | payer OTHER ==
[2019-05-09 10:38] VITALS: BP 104/54; BMI 35.3
[2019-05-09] MEDS ORDERED: ACETAMINOPHEN 325 MG TABLET (FP) ONE (11:44)
[2019-05-09] MEDS ORDERED: ACETAMINOPHEN 325 MG TABLET (FP) PO ONE (11:52)
--- NOTE | 2019-05-09 11:53 | PDOC ---
History of Present Illness - General Chief Complaint: Cold Symptoms Stated Complaint: FEVER COUGH 2 DAYS Time Seen by Provider: 05/09/19 10:22 - History of Present Illness Initial Comments: 05/09/19 13:33 Chief complaint: Cough and fever for 2 days HPI: Fever to 102 degrees, nonproductive cough since yesterday. No chest pain or shortness of breath. History of mild asthma but there has been no wheezing or chest tightness. No asthma hospitalizations, intubations, but steroids and home nebulizers have been employed several times per year for exacerbations. She did not get a flu shot Review of systems: As noted above, otherwise negative Past medical history: Asthma Social/family history reviewed and noncontributory Physical exam: Alert and oriented well-developed well-nourished no acute distress cooperative. Significant coughing is present but the patient does not appear to be tachypneic or dyspneic Temperature 102 degrees remainder vital signs stable ENT clear Neck supple without bruit mass or nodes Chest with mildly decreased breath sounds bilaterally, no wheezes rales or rhonchi, adequate air movement, symmetric CV regular without murmur rub or gallop Abdomen benign Neurologic intact Extremities no CCE Skin clear, no rash, adequate turgor and wet mucous membranes Impression: Viral bronchitis, possibly influenza, rule out pneumonia. Plan: Chest x-ray negative for pneumonia. Antibiotics, Tylenol, and cough syrup. Close follow-up was recommended, to return to ER if fever persists more than 24 hours, or there is chest pain, shortness of breath, increased cough or sputum production. Fully ambulatory and in no respiratory distress at discharge with to follow-up as directed. Past History - Past Medical History Allergies/Adverse Reactions: Allergies Allergy/AdvReac Type Severity Reaction Status Date / Time clindamycin Allergy Unknown Verified 05/09/19 10:22 amoxicillin Allergy Verified 05/09/19 10:22 amoxicillin trihydrate Allergy Verified 05/09/19 10:22 [From Augmentin] potassium clavulanate Allergy Verified 05/09/19 10:22 [From Augmentin] Home Medications: Ambulatory Orders Azithromycin [Zithromax 250mg Tablets -] 250 mg PO UTDICT #6 tab 05/09/19 Asthma: Yes Cardiac Disorders: Yes (ARRYTHMIA, HEART MURMUR) COPD: No GI Disorders: Yes (ACID REFLUX) - Psycho Social/Smoking Cessation Hx Smoking Status: No Smoking History: Never smoked Have you smoked in the past 12 months: No Number of Cigarettes Smoked Daily: 0 Information on smoking cessation initiated: No Hx Alcohol Use: No Drug/Substance Use Hx: No Substance Use Type: None *Physical Exam - Vital Signs Last Vital Signs Temp Pulse Resp BP Pulse Ox 102.4 F H 92 H 24 H 104/54 L 94 L 05/09/19 10:22 05/09/19 10:22 05/09/19 10:05/09/19 10:05/09/19 10:22 Discharge - Discharge Information Problems reviewed: Yes Clinical Impression/Diagnosis: Bronchitis Condition: Stable Disposition: HOME - Admission No - Additional Discharge Information Prescriptions: Azithromycin [Zithromax 250mg Tablets -] 250 mg PO UTDICT #6 tab - Follow up/Referral - Patient Discharge Instructions Patient Printed Discharge Instructions: DI for Acute Bronchitis Additional Instructions: Rest drink plenty of fluids take medication as directed If fever persists more than 24 to 48 hours, return to ER or see primary physician. Especially if there is accompanying chest pain, shortness of breath , nausea, vomiting. - Post Discharge Activity
[2019-05-09 13:22] VITALS: PULSE 79; TEMP 100
== END 2019-05-09 13:21 | disposition home or self-care (01) ==
LOC: FER 10:20
DX: J20.9 Acute bronchitis, unspecified (principal); J45.909 Unspecified asthma, uncomplicated; R01.1 Cardiac murmur, unspecified; I49.9 Cardiac arrhythmia, unspecified; K21.9 Gastro-esophageal reflux disease without esophagitis; Z88.0 Allergy status to penicillin
CPT/HCPCS: 71046-TC-FY; 99281-25

== ENCOUNTER 2019-11-13 17:19 | Emergency (ER) | payer OTHER ==
[2019-11-13 17:29] VITALS: BP 106/46; PULSE 60; TEMP 98; BMI 34.3
[2019-11-13] MEDS ORDERED: ALBUTEROL SO4 0.042% IH SOL 1.25 MG/3 ML VIAL.NEB NEB ONE (17:48)
[2019-11-13] MEDS ORDERED: ALBUTEROL SO4 HFA INHALER IH ONE ×2 (17:52→17:54)
--- NOTE | 2019-11-13 18:02 | PDOC ---
Documentation entered by Ramiro Reyes SCRIBE, acting as scribe for Guero Griffin MD. Guero Griffin MD: This documentation has been prepared by the keturahibe, Ramiro Reyes SCRIBE, under my direction and personally reviewed by me in its entirety. I confirm that the documentation accurately reflects all work, treatment, procedures, and medical decision making performed by me. History of Present Illness - General Chief Complaint: Chest Pain Stated Complaint: CHEST PRESSURE FOR 1 WEEK WORSEN WITH DEEP BREAT Time Seen by Provider: 11/13/19 17:23 History Source: Patient Exam Limitations: No Limitations - History of Present Illness Initial Comments: 11/13/19 17:50 The patient is a 54 year old female with a significant past medical history of asthma (last used albuterol inhaler yesterday), bronchitis, arrhythmia, heart murmur, GERD, and fibromyalgia and who presents to the ED with constant chest tightness and pressure that began one week ago. Patient reports associated subjective fevers/chills (feeling hot) and urinary frequency. PT denies any dyspnea/cp with exertion, coughing, back pain, hemoptysis, diarrhea, bpr, dysuria. Patient denies sob, nausea, vomiting, or a sore throat. Allergies: clindamycin, amoxicillin trihydrate, potassium clavulanate PCP is Dr. Block Past History - Medical History Allergies/Adverse Reactions: Allergies Allergy/AdvReac Type Severity Reaction Status Date / Time clindamycin Allergy Unknown Verified 11/13/19 17:21 amoxicillin Allergy Verified 11/13/19 17:21 amoxicillin trihydrate Allergy Verified 11/13/19 17:21 [From Augmentin] potassium clavulanate Allergy Verified 11/13/19 17:21 [From Augmentin] Home Medications: Ambulatory Orders Unobtainable 11/13/19 Asthma: Yes Cardiac Disorders: Yes (ARRYTHMIA, HEART MURMUR) COPD: No GI Disorders: Yes (ACID REFLUX) - Psycho-Social/Smoking History Smoking Status: No Smoking History: Never smoked Have you smoked in the past 12 months: No Number of Cigarettes Smoked Daily: 0 Review of Systems - Review of Systems Able to Perform ROS?: Yes Comments:: 11/13/19 17:50 Constitutional - +fevers, chills Pt denies weakness HEENT: denies vision changes, sore throat Respiratory: Denies cough, sob, hemoptysis Cardiac: +chest pain Denies palpitations, light headedness,leg swelling Abd/GI: denies nausea, abd pain, vomiting, blood per rectum, melena, diarrhea : +frequency denies dysuria, discharge Musculoskeletal - denies back pain, joint swelling skin - denies bruising, erythema, rash neurological: denies headache, numbness, focal weakness, tingling, ataxia, weakness hematologic: denies anemia, easy bruising, easy bleeding All Other Systems: Reviewed and Negative *Physical Exam - Physical Exam 11/13/19 18:03 GENERAL: The patient is awake, alert, and fully oriented, Nontoxic - in no acute distress. HEAD: Normocephalic, atraumatic. EYES: extraocular movements intact, sclera anicteric, conjunctiva clear. ENT: Normal voice, Moist mucous membranes. NECK: Normal range of motion, supple LUNGS: Breath sounds equal, clear to auscultation bilaterally. No wheezes, no rhonchi, no rales. HEART: Regular rate and rhythm, normal S1 and S2 without murmur, rub or gallop. ABDOMEN: Soft, nontender, No guarding, no rebound. No CVA tenderness EXTREMITIES: Normal range of motion, no edema, Negative Homans, no calf tenderness NEUROLOGICAL: No facial assymetry, Normal speech, PSYCH: Normal mood, normal affect. SKIN: Warm, Dry, normal turgor, Heart Score/ECG Review - ECG Impressions Comment:: 11/13/19 18:03 Twelve-lead EKG was performed and reviewed by me. There is normal sinus rhythm with a rate of 49 The axis is normal. The intervals are normal. There is normal R wave progression nonspecific ST changes sinus bradycardia ED Treatment Course - LABORATORY CBC & Chemistry Diagram: 11/13/19 18:05 11/13/19 18:05 Medical Decision Making - Medical Decision Making 11/13/19 18:04 ddx includes but is not limited to bronchitis, pna, asthma, acs, will obtain cxr to screen for acut epulmonary disease ekg and trop to screen fora cs willgive albuterol will reasess 11/13/19 19:16 Patient's blood work reviewed unremarkable, will obtain troponin x2. If patient feeling better, tropes negative we will have the patient follow-up with cardiology for outpatient work-up Discharge - Discharge Information Problems reviewed: Yes Clinical Impression/Diagnosis: Atypical chest pain Condition: Stable - Admission No - Follow up/Referral - Patient Discharge Instructions Patient Printed Discharge Instructions: DI for Atypical Chest Pain Additional Instructions: Return to the emergency department immediately with ANY new, persistent or worsening symptoms Including any worsening chest pain, shortness of breath or any other concerns. You MUST call and follow up with your doctor and a cardiolgist within 4-5 days for further evaluation of your symptoms. Results were discussed with you. Please make sure your doctor reviews the results of your emergency evaluation. Your Emergency Department visit is not complete without a follow up with your doctor. Print Language: TAJIK - Post Discharge Activity
[2019-11-13 18:22] LABS: BASO % 4.4 % (0-2.0); EOS % 2.3 % (0-4.5); HEMATOCRIT 36.2 % (32.4-45.2); HEMOGLOBIN 11.9 GM/dl (10.7-15.3); LYMPH % 33.3 % (8-40); MCH 23.6 pg (25.7-33.7); MCHC 32.9 g/dl (32.0-36.0); MEAN CELL VOLUME 71.8 fl (80-96); MEAN PLT VOLUME 8.1 fl (7.5-11.1); MONO % 7.1 % (3.8-10.2); NEUT % 52.9 % (42.8-82.8); PLATELET COUNT 266 K/MM3 (134-434); RBC 5.04 M/mm3 (3.60-5.2); RDW 14.1 % (11.6-15.6); WHITE BLOOD COUNT 5.6 K/mm3 (4.0-10.8)
[2019-11-13 18:34] LABS: ALBUMIN 4.3 g/dl (3.4-5.0); BILIRUBIN,TOTAL 0.8 mg/dl (0.2-1); CALCIUM 9.2 mg/dl (8.5-10); CREATININE 0.7 mg/dl (0.55-1.3); POTASSIUM 4.3 mmol/L (3.5-5.1); TOT PROT 6.9 g/dl (6.4-8.2)
--- NOTE | 2019-11-13 19:27 | PDOC ---
*Physical Exam - Vital Signs Last Vital Signs Temp Pulse Resp BP Pulse Ox 98 F 60 16 106/46 L 98 11/13/19 17:20 11/13/19 17:20 11/13/19 17:20 11/13/19 17:20 11/13/19 17:20 ED Treatment Course - LABORATORY CBC & Chemistry Diagram: 11/13/19 18:05 11/13/19 18:05 - ADDITIONAL ORDERS Additional order review: Laboratory Results 11/13/19 11/13/19 11/13/19 18:10 18:05 18:05 Sodium 137 Potassium 4.3 Chloride 100 Carbon Dioxide 27 Anion Gap 10 BUN 13.0 Creatinine 0.7 Est GFR (CKD-EPI)AfAm 114.65 Est GFR (CKD-EPI)NonAf 98.92 Random Glucose 91 Calcium 9.2 Total Bilirubin 0.8 AST 31 ALT 64 H Alkaline Phosphatase 73 Creatine Kinase 141 Troponin I < 0.03 Total Protein 6.9 Albumin 4.3 Urine Color Yellow Urine Appearance Clear Urine pH 5.0 Urine Protein Negative Urine Glucose (UA) Negative Urine Ketones Negative Urine Blood Negative Urine Nitrite Negative Urine Bilirubin Negative Urine Urobilinogen 0.2 Ur Leukocyte Esterase Negative 11/13/19 18:05 RBC 5.04 MCV 71.8 L MCHC 32.9 RDW 14.1 MPV 8.1 Neutrophils % 52.9 Lymphocytes % 33.3 Monocytes % 7.1 Eosinophils % 2.3 Basophils % 4.4 H - Medications Given in the ED: ED Medications Discontinued Medications Generic Name Dose Route Start Last Admin Trade Name Benignoq PRN Reason Stop Dose Admin Albuterol Sulfate 1 amp 11/13/19 17:48 11/13/19 18:08 Ventolin 0.042trength) - NEB 11/13/19 17:49 Not Given ONCE ONE Albuterol Sulfate 2 puff 11/13/19 17:52 11/13/19 18:07 Ventolin Hfa Inhaler - IH 11/13/19 17:53 2 puff ONCE ONE Administration ED Progress Note - Progress Note Progress Note: Care of this patient received from Dr. Griffin Patient continued to be comfortable. Second troponin less than 0.03. 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 Discharge - Discharge Information Problems reviewed: Yes Clinical Impression/Diagnosis: Atypical chest pain Condition: Stable Disposition: HOME - Follow up/Referral - Patient Discharge Instructions Patient Printed Discharge Instructions: DI for Atypical Chest Pain Additional Instructions: Return to the emergency department immediately with ANY new, persistent or worsening symptoms Including any worsening chest pain, shortness of breath or any other concerns. You MUST call and follow up with your doctor and a cardiolgist within 4-5 days for further evaluation of your symptoms. Results were discussed with you. Please make sure your doctor reviews the results of your emergency evaluation. Your Emergency Department visit is not complete without a follow up with your doctor. Print Language: LITHUANIAN - Post Discharge Activity
--- NOTE | 2019-11-14 13:20 | EKG ---
Test Reason : Blood Pressure : / mmHG Vent. Rate : 049 BPM Atrial Rate : 049 BPM P-R Int : 198 ms QRS Dur : 056 ms QT Int : 454 ms P-R-T Axes : 013 004 018 degrees QTc Int : 410 ms SINUS BRADYCARDIA NONSPECIFIC ST ABNORMALITY ABNORMAL ECG Confirmed by NASIM DAI MD ([id number]) on 11/14/2019 1:19:39 PM Referred By: DR TOSCANO Confirmed By:NASIM DAI MD
== END 2019-11-13 21:18 | disposition home or self-care (01) ==
LOC: FER 17:19
PROC: 3E0F7GC Introduction of Other Therapeutic Substance into Respiratory Tract, Via Natural or Artificial Opening (ICD-10-PCS; principal; 2019-11-13)
DX: R07.89 Other chest pain (principal)
CPT/HCPCS: 36415; 71046-TC-FY; 80053; 81003; 82550; 84484; 85025; 93005; 99285-25

== ENCOUNTER 2020-05-30 11:46 | Emergency (ER) | payer OTHER | END 2020-05-30 14:26 | disposition home or self-care (01) | LOC: JVIRT 11:46 | DX: Z11.52 Encounter for screening for COVID-19 (principal) | CPT/HCPCS: C9803; G2012-GT; U0003 ==

== ENCOUNTER 2020-12-21 20:00 | Emergency (ER) | payer OTHER ==
[2020-12-21 20:26] VITALS: BP 104/62; PULSE 64; TEMP 98.5; BMI 34.7
[2020-12-21] MEDS ORDERED: KETOROLAC TROMETHAMINE 60 MG/2 ML VIAL ONE (21:00)
[2020-12-21] MEDS ORDERED: KETOROLAC TROMETHAMINE 60 MG/2 ML VIAL IM ONE (21:00)
== END 2020-12-21 21:11 | disposition home or self-care (01) ==
LOC: FER 20:00
PROC: 3E023GC Introduction of Other Therapeutic Substance into Muscle, Percutaneous Approach (ICD-10-PCS; principal; 2020-12-21)
DX: M54.32 Sciatica, left side (principal)
CPT/HCPCS: 81003; 81015; 87086; 99284-25

== ENCOUNTER 2021-05-01 15:23 | Emergency (ER) | payer OTHER ==
[2021-05-01 15:34] VITALS: BP 120/70; PULSE 77; TEMP 99.7; BMI 34.7
[2021-05-01] MEDS ORDERED: ACETAMINOPHEN 325 MG TABLET (FP) PO ONE (15:56)
[2021-05-01] MEDS ORDERED: ACETAMINOPHEN 325 MG TABLET (FP) ONE (16:03)
== END 2021-05-01 17:55 | disposition home or self-care (01) ==
LOC: FER 15:23
DX: U07.1 COVID-19 (principal)
CPT/HCPCS: 71045-TC-FY; 99283-25

== ENCOUNTER 2021-11-08 18:53 | Emergency (ER) | payer OTHER ==
[2021-11-08 18:59] VITALS: BP 129/68; PULSE 86; TEMP 98.9; BMI 35.3
[2021-11-08] MEDS ORDERED: ALBUTEROL SO4 2.5/IPRATROPIUM 0.5 INH SOL 3 ML VIAL.NEB. NEB ONE (19:17)
[2021-11-08] MEDS ORDERED: guaiFENesin/D-METHORPHAN HB 10 ML UNIT-DOSE CUPS PO ONE (19:18)
[2021-11-08] MEDS ORDERED: guaiFENesin/D-METHORPHAN HB 10 ML UNIT-DOSE CUPS ONE (19:20)
[2021-11-08] MEDS ORDERED: ACETAMINOPHEN WITH CODEINE 300MG/30MG TABLET PO ONE (20:02)
== END 2021-11-08 21:05 | disposition home or self-care (01) ==
LOC: FER 18:53
PROC: 3E0F7GC Introduction of Other Therapeutic Substance into Respiratory Tract, Via Natural or Artificial Opening (ICD-10-PCS; principal; 2021-11-08)
DX: J20.9 Acute bronchitis, unspecified (principal)
CPT/HCPCS: 0241U-QW; 99283-25

== ENCOUNTER 2022-04-16 12:17 | Emergency (ER) | payer OTHER ==
[2022-04-16 12:26] VITALS: BP 115/66; PULSE 78; RESP 18; TEMP 98.6; BMI 34.3
[2022-04-16] MEDS ORDERED: DEXAMETHASONE SOD PHOSPHATE 10 MG/1 ML VIAL PO ONE (14:00)
[2022-04-16] MEDS ORDERED: ALBUTEROL SO4 2.5/IPRATROPIUM 0.5 INH SOL 3 ML VIAL.NEB. NEB ONE ×2 (14:02→14:38)
[2022-04-16] MEDS ORDERED: DEXAMETHASONE SOD PHOSPHATE 10 MG/1 ML VIAL ONE (14:02)
[2022-04-16] MEDS: ALBUTEROL SO4 2.5/IPRATROPIUM 0.5 INH SOL 3 ML VIAL.NEB. NEB SCH ×2 (14:40→15:08)
== END 2022-04-16 16:24 | disposition home or self-care (01) ==
LOC: JERFT 12:17 → JER 12:17 → JERFT 16:24
PROC: 3E0F7GC Introduction of Other Therapeutic Substance into Respiratory Tract, Via Natural or Artificial Opening (ICD-10-PCS; principal; 2022-04-16)
DX: J06.9 Acute upper respiratory infection, unspecified (principal)
CPT/HCPCS: 99284-25; J1100

== ENCOUNTER 2023-02-06 21:47 | Emergency (ER) | payer OTHER ==
[2023-02-06 22:01] VITALS: BP 104/50; PULSE 62; RESP 16; TEMP 98.2; BMI 36.3
[2023-02-06] MEDS ORDERED: SODIUM CHLORIDE 1,000 ML IV ONE (22:17)
[2023-02-06] MEDS ORDERED: morphine CARPU-JECT 2 MG/1 ML DISP.SYRIN IVPUSH ONE (22:17)
[2023-02-06 23:21] LABS: HEMATOCRIT 38.4 % (32.4-45.2); HEMOGLOBIN 12.5 G/dL (10.7-15.3); MCH 23.8 pg (25.7-33.7); MCHC 32.4 g/dl (32.0-36.0); MEAN CELL VOLUME 73.5 fl (80-96); MEAN PLT VOLUME 8.4 fl (7.5-11.1); PLATELET COUNT 233.8 10^3/uL (134-434); RBC 5.23 10^6/uL (3.60-5.2); RDW 17.3 % (11.6-15.6); WHITE BLOOD COUNT 6.2 10^3/uL (4.0-10.8)
[2023-02-06 23:35] LABS: ALBUMIN 4.3 g/dl (3.4-5.0); BILIRUBIN,TOTAL 0.5 mg/dl (0.2-1); BLOOD UREA NITROGEN 16.9 mg/dl (7-18); CALCIUM 8.8 mg/dl (8.5-10.1); CREATININE 0.8 mg/dl (0.6-1.3); PHOSPHOROUS 4.14 (2.5-4.9); TOT PROT 6.5 g/dl (6.4-8.2)
[2023-02-07 05:00] LABS: URINE APPEARANCE CLEAR; URINE BILIRUBIN NEGATIVE (NEGATIVE); URINE COLOR YELLOW; URINE GLUCOSE (UA) NEGATIVE (NEGATIVE); URINE KETONE NEGATIVE (NEGATIVE); URINE LEUK ESTERASE NEGATIVE (NEGATIVE); URINE NITRITE NEGATIVE (NEGATIVE); URINE PROTEIN NEGATIVE (NEGATIVE)
== END 2023-02-07 05:27 | disposition home or self-care (01) ==
LOC: FER 21:47
PROC: 3E033GC Introduction of Other Therapeutic Substance into Peripheral Vein, Percutaneous Approach (ICD-10-PCS; principal; 2023-02-06)
PROC: 3E0337Z Introduction of Electrolytic and Water Balance Substance into Peripheral Vein, Percutaneous Approach (ICD-10-PCS; 2023-02-06)
DX: R10.32 Left lower quadrant pain (principal); I10 Essential (primary) hypertension; E78.5 Hyperlipidemia, unspecified; E11.9 Type 2 diabetes mellitus without complications
CPT/HCPCS: 36415; 74177-TC; 80053; 81003; 83690; 83735; 84100; 85027; 93005; 93971-TC; 99285-25; Q9967

== ENCOUNTER 2023-06-30 00:54 | Emergency (ER) | payer OTHER ==
[2023-06-30 01:07] VITALS: RESP 18; BMI 34.3
[2023-06-30] MEDS ORDERED: IBUPROFEN 400 MG TABLET (FP) PO ONE (01:49)
[2023-06-30] MEDS: IBUPROFEN 400 MG TABLET (FP) PO ONE (01:50)
[2023-06-30 03:19] VITALS: BP 96/60; PULSE 71; TEMP 99
== END 2023-06-30 03:19 | disposition home or self-care (01) ==
LOC: JER 00:54
DX: J06.9 Acute upper respiratory infection, unspecified (principal); R50.9 Fever, unspecified; R05.9 Cough, unspecified; R07.0 Pain in throat; R51.9 Headache, unspecified; J34.89 Other specified disorders of nose and nasal sinuses; Z20.822 Contact with and (suspected) exposure to COVID-19
CPT/HCPCS: 0241U-QW; 71046-TC-FY; 99284-25